=== PATIENT | male | born 2000 | race Caucasian/White ===

== ENCOUNTER 2022-02-13 13:14 | Outpatient (CLI) | payer OTHER ==
--- NOTE | 2022-02-13 14:45 | MRI Report ---
PROCEDURE: LUMBAR SPINE WO INDICATIONS: DORSALGIA TECHNIQUE: Noncontrast sagittal T1 spin echo and T2 fast echo, sagittal STIR, axial T1 and T2 fast spin echo thr ough the lumbar spine. In cases with scoliosis, additional coronal T2 fast spin echo may be performe d. COMPARISON: None. FINDINGS: Normal lumbar vertebral body height, alignment, and signal intensity. No suspicious focal marrow sign al abnormality or bone marrow edema. Normal position and appearance of the conus. Prevertebral and pa raspinous soft tissues are normal. Disc desiccation and disc height loss at L5-S1 with circumferential disc bulge and a superimposed bro ad-based posterior disc protrusion. Disc material displaces the bilateral descending S1 nerve roots a nd both subarticular zones. No neural foraminal stenosis. No significant degenerative changes at the remaining levels. IMPRESSION: Mild displacement of the descending S1 nerve roots and both subarticular zones by L5-S1 disc protrusi on. Correlate for any corresponding radicular symptoms. Reviewed by: Hilario Mccormack MD on 02/13/2022 1:44 PM [place] Approved by: Hilario Mccormack MD on 02/13/2022 1:44 PM [facility] Station ID: [id number]
== END 2022-02-13 13:15 | disposition home or self-care (01) ==
LOC: DI 13:14
DX: M51.17 Intervertebral disc disorders with radiculopathy, lumbosacral region (principal); M51.36 Other intervertebral disc degeneration, lumbar region